=== PATIENT | female | born 1945 | race Caucasian/White ===

== ENCOUNTER 2017-04-24 08:55 | Observation (INO) | payer MEDICARE, MEDICAID ==
[~2017-04-24] VITALS: Ht 167.6 cm; Wt 59.1 kg
[~2017-04-24 08:55] MED LIST: ASPI-611 PO; CALC-1021 PO; CYAN10006 IM; DIPH25CA83 PO; DOCU-28 PO; DOXY-200 PO; LEVO75TA PO; MELA3TAB PO; OMEP20TA5 PO; PENT100C9 PO; POLY17PO10 PO
[2017-04-24] MEDS ORDERED: oxymetazoline 15 ML nasal spray NS ONE (09:15)
[2017-04-24 09:20] LABS: BASOPHILS % (AUTO) 0.4 % (0-1); EOSINOPHILS # (AUTO) 0.4 X10'3 (0-0.9); EOSINOPHILS % (AUTO) 5.8 % (0-6); HEMATOCRIT 29.8 % (35.0-45.0); HEMOGLOBIN 10.1 g/dl (12.0-16.0); LYMPHOCYTES % (AUTO) 29.3 % (21-51); MEAN CORPUSCULAR HGB CONC 33.8 % (33.0-36.5); MEAN CORPUSCULAR VOLUME 88.8 FL (78-98); MEAN PLATELET VOLUME 7.5 FL (7.4-10.4); MONOCYTES # (AUTO) 0.6 X10'3 (0-0.9); MONOCYTES % (AUTO) 9.1 % (2-12); NEUTROPHILS # (AUTO) 3.7 X10'3 (1.8-7.7); NEUTROPHILS % (AUTO) 55.4 % (42-75); PLATELET COUNT 200 X10'3 (140-440); RED BLOOD COUNT 3.36 X10'6 (4.20-5.60); RED CELL DISTRIBUTION WIDTH 14.8 % (11.5-14.5); WHITE BLOOD COUNT 6.7 X10'3 (4.5-11.0)
[2017-04-24] MEDS ORDERED: cocaine 4% topical solution 4ml bottle TP ONE (09:20)
[2017-04-24 09:31] LABS: PARTIAL THROMBOPLASTIN TIME 27 SECONDS (22-32); PROTHROMBIN TIME 10.4 SECONDS (9.0-12.0)
[2017-04-24 09:35] LABS: ALANINE AMINOTRANSFERASE 17 U/L (12-78); ALBUMIN 3.4 G/DL (3.4-5.0); ALBUMIN/GLOBULIN RATIO 0.8 (1.1-1.5); ALKALINE PHOSPHATASE 69 IU/L (46-116); ANION GAP 10 (8-16); ASPARTATE AMINO TRANSFERASE 15 U/L (10-37); BILIRUBIN,TOTAL 0.2 MG/DL (0.1-1.0); BLOOD UREA NITROGEN 10 MG/DL (7-18); BUN/CREATININE RATIO 10.3 (6.6-38.0); CALCIUM 8.8 MG/DL (8.5-10.1); CHLORIDE 103 MMOL/L (99-107); CREATININE 0.97 MG/DL (0.40-0.90); GLUCOSE 142 MG/DL (70-104); POTASSIUM 3.7 MMOL/L (3.5-5.1); SODIUM 137 MMOL/L (135-145); TOTAL CARBON DIOXIDE 24.2 MMOL/L (24-32); TOTAL PROTEIN 7.5 G/DL (6.4-8.2); eGFR 56 ML/MIN
[2017-04-24] MEDS ORDERED: ondansetron/PF 4mg/2ml inj IV ONE (10:15)
[2017-04-24] MEDS ORDERED: normal saline 1000ml 1,000 ML IV ONE (10:30)
[2017-04-24] MEDS ORDERED: magnesium hydroxide 30ml (MOM) UD suspension PO PRN (14:10)
[2017-04-24] MEDS ORDERED: mag hydrox/Alum hydrox/simeth 30ml oral suspension PO PRN (14:10)
[2017-04-24] MEDS ORDERED: acetaminophen 325mg tablet PO PRN ×2 (14:10)
[2017-04-24] MEDS ORDERED: ondansetron/PF 4mg/2ml inj IV PRN (14:10)
[2017-04-24] MEDS ORDERED: CLINDAMYCIN PHOSPHATE IV ONE (14:15)
[2017-04-24] MEDS ORDERED: NORMAL SALINE IV ONE (14:15)
[2017-04-24] MEDS ORDERED: clindamycin phosphate inj 300 MG in dextrose 5%-water 50ml 48 ML IV ONE (14:30)
[2017-04-24] MEDS: normal saline 1000ml 1,000 ML IV SCH (15:04)
[2017-04-24 20:55] LABS: HEMATOCRIT 24.9 % (35.0-45.0); HEMOGLOBIN 8.3 g/dl (12.0-16.0); MEAN CORPUSCULAR HEMOGLOBIN 29.6 PG (27.0-31.0); MEAN CORPUSCULAR HGB CONC 33.4 % (33.0-36.5); MEAN CORPUSCULAR VOLUME 88.8 FL (78-98); MEAN PLATELET VOLUME 7.3 FL (7.4-10.4); PLATELET COUNT 199 X10'3 (140-440); RED CELL DISTRIBUTION WIDTH 15.1 % (11.5-14.5); WHITE BLOOD COUNT 8.2 X10'3 (4.5-11.0)
[2017-04-24] MEDS ORDERED: diphenhydrAMINE 25mg capsule PO SCH (21:00)
[2017-04-24] MEDS: pentosan 100mg capsule PO SCH (21:00)
[2017-04-24] MEDS ORDERED: Melatonin 3mg tablet PO SCH (21:00)
[2017-04-24] MEDS ORDERED: AMIT25TA23 PO (21:13)
[2017-04-24] MEDS ORDERED: amitriptyline 25mg tablet PO ONE (21:30)
[2017-04-24] MEDS ORDERED: diphenhydrAMINE 25mg capsule PO ONE (21:35)
[2017-04-24] MEDS: pantoprazole 40mg Tablet.DR PO SCH (21:41)
[2017-04-24] MEDS: clindamycin phosphate inj 300 MG in dextrose 5%-water 50ml 48 ML IV SCH (21:42)
[2017-04-24] MEDS ORDERED: tranexamic acid inj. 1,000 MG in normal saline 100ml IV soln 90 ML IV ONE (22:35)
[2017-04-24] MEDS ORDERED: docusate sod 100mg capsule PO ONE (22:55)
[2017-04-24] MEDS ORDERED: acetaminophen 325mg tablet PO ONE (22:55)
[2017-04-25] MEDS: clindamycin phosphate inj 300 MG in dextrose 5%-water 50ml 48 ML IV SCH ×2 (04:51→09:33)
[2017-04-25] MEDS: normal saline 1000ml 1,000 ML IV SCH (04:51)
[2017-04-25 06:10] LABS: HEMATOCRIT 24.1 % (35.0-45.0); HEMOGLOBIN 8.2 g/dl (12.0-16.0); MEAN CORPUSCULAR HEMOGLOBIN 30.2 PG (27.0-31.0); MEAN CORPUSCULAR HGB CONC 33.9 % (33.0-36.5); MEAN CORPUSCULAR VOLUME 89.1 FL (78-98); MEAN PLATELET VOLUME 7.6 FL (7.4-10.4); PLATELET COUNT 190 X10'3 (140-440); RED CELL DISTRIBUTION WIDTH 14.7 % (11.5-14.5); WHITE BLOOD COUNT 9.6 X10'3 (4.5-11.0)
[2017-04-25 06:27] LABS: ALBUMIN 3.1 G/DL (3.4-5.0); ANION GAP 9 (8-16); BLOOD UREA NITROGEN 15 MG/DL (7-18); BUN/CREATININE RATIO 15.8 (6.6-38.0); CALCIUM 8.5 MG/DL (8.5-10.1); CHLORIDE 105 MMOL/L (99-107); CREATININE 0.95 MG/DL (0.40-0.90); GLUCOSE 119 MG/DL (70-104); POTASSIUM 4.1 MMOL/L (3.5-5.1); SODIUM 137 MMOL/L (135-145); TOTAL CARBON DIOXIDE 22.8 MMOL/L (24-32); eGFR 58 ML/MIN
[2017-04-25 07:30] VITALS: BP 106/50
[2017-04-25] MEDS ORDERED: oxyCODONE SR 10mg (sust. release) tab PO ONE (07:30)
[2017-04-25] MEDS ORDERED: levoTHYROXINE 75mcg tablet PO SCH (08:00)
[2017-04-25] MEDS: pentosan 100mg capsule PO SCH (08:00)
[2017-04-25] MEDS: pantoprazole 40mg Tablet.DR PO SCH (09:13)
[2017-04-25] MEDS ORDERED: ondansetron/PF 4mg/2ml inj IV ONE (12:05)
[2017-04-25] MEDS ORDERED: ONDA4TAB9 SL (12:08)
[2017-04-25] MEDS ORDERED: CLIN75SO10 PO (12:08)
[2017-04-25] MEDS ORDERED: lactobacillus rhamnosus 10,000 MMU CELLS/CAPSULE PO SCH (20:00)
[2017-04-25] MEDS ORDERED: diphenhydrAMINE 25mg capsule PO ONE (21:00)
[2017-04-25] MEDS ORDERED: amitriptyline 25mg tablet PO SCH (21:00)
[2017-04-25] MEDS ORDERED: diphenhydrAMINE 25mg capsule PO SCH (21:00)
== END 2017-04-25 13:50 | disposition home or self-care (01) ==
LOC: ER 08:55 → ED HOLD 14:07 → CMPBEDREQ 19:47
PROVIDERS: ADMIT Family Medicine; ATTEND Family Medicine
DX: R04.0 Epistaxis (principal); E03.9 Hypothyroidism, unspecified; I25.10 Atherosclerotic heart disease of native coronary artery without angina pectoris; N30.10 Interstitial cystitis (chronic) without hematuria; K29.70 Gastritis, unspecified, without bleeding; D51.0 Vitamin B12 deficiency anemia due to intrinsic factor deficiency; M1A.9XX1 Chronic gout, unspecified, with tophus (tophi); I63.9 Cerebral infarction, unspecified; Z86.73 Personal history of transient ischemic attack (TIA), and cerebral infarction without residual deficits; Z87.891 Personal history of nicotine dependence; Z90.710 Acquired absence of both cervix and uterus
CPT/HCPCS: 36415; 71045; 80048; 80053; 85025; 85027; 85610; 85730; 87070; 93005; 96361; 96365; 96366; 96368; 96375; 96376; 99291; 99292; A6449; G0378; J2405; J3490; J7030; J7060; Q0163; J7040

== ENCOUNTER 2018-04-17 09:45 | Day surgery (SDC) | payer MEDICARE, MEDICAID ==
[2018-04-16 13:07] LABS: BASOPHILS % (AUTO) 0.6 % (0-1); EOSINOPHILS # (AUTO) 0.2 X10'3 (0-0.9); EOSINOPHILS % (AUTO) 3.6 % (0-6); HEMATOCRIT 35.4 % (35.0-45.0); HEMOGLOBIN 11.7 g/dl (12.0-16.0); LYMPHOCYTES # (AUTO) 1.9 X10'3 (1.1-4.8); LYMPHOCYTES % (AUTO) 29.5 % (21-51); MEAN CORPUSCULAR HEMOGLOBIN 30.9 PG (27.0-31.0); MEAN CORPUSCULAR HGB CONC 33.2 g/dL (33.0-36.5); MEAN PLATELET VOLUME 7.8 FL (7.4-10.4); MONOCYTES # (AUTO) 0.7 X10'3 (0-0.9); MONOCYTES % (AUTO) 9.9 % (2-12); NEUTROPHILS # (AUTO) 3.7 X10'3 (1.8-7.7); NEUTROPHILS % (AUTO) 56.4 % (42-75); PLATELET COUNT 186 X10'3 (140-440); RED CELL DISTRIBUTION WIDTH 13.4 % (11.5-14.5); WHITE BLOOD COUNT 6.6 X10'3 (4.5-11.0)
[2018-04-16 13:08] LABS: ALBUMIN 3.6 G/DL (3.4-5.0); ANION GAP 8 (8-16); BLOOD UREA NITROGEN 8 MG/DL (7-18); BUN/CREATININE RATIO 8.1 (6.6-38.0); CALCIUM 9.1 MG/DL (8.5-10.1); CHLORIDE 105 MMOL/L (99-107); CREATININE 0.99 MG/DL (0.40-0.90); GLUCOSE 97 MG/DL (70-104); POTASSIUM 3.8 MMOL/L (3.5-5.1); SODIUM 140 MMOL/L (135-145); TOTAL CARBON DIOXIDE 27.3 MMOL/L (24-32); eGFR 55 ML/MIN
[2018-04-16 13:31] LABS: PARTIAL THROMBOPLASTIN TIME 26 SECONDS (22-32); PROTHROMBIN TIME 10.3 SECONDS (9.0-12.0)
[2018-04-17] VITALS (11 sets, daily range): BP systolic 101–131; BP diastolic 54–77
[~2018-04-17] VITALS: Ht 162.6 cm; Wt 61.6 kg
[~2018-04-17 09:45] MED LIST changes: +AMIT25TA23 PO; -ASPI-611 PO; -CALC-1021 PO; -DIPH25CA83 PO; -DOXY-200 PO
[2018-04-17] MEDS ORDERED: diphenhydrAMINE 25mg capsule PO PRN (10:15)
[2018-04-17] MEDS ORDERED: normal saline 1000ml 1,000 ML IV SCH ×2 (10:15→15:15)
[2018-04-17] MEDS ORDERED: LORazepam 0.5 MG tablet PO PRN (10:15)
[2018-04-17] MEDS ORDERED: ASPI-611 PO (10:48)
[2018-04-17] MEDS ORDERED: ATOR20TA PO (10:48)
[2018-04-17] MEDS ORDERED: DIPH-423 PO (10:48)
[2018-04-17] MEDS ORDERED: CALC1TAB2 (10:48)
[2018-04-17] MEDS ORDERED: ondansetron/PF 4mg/2ml inj IV PRN (11:50)
[2018-04-17] MEDS ORDERED: verapamil 2.5 mg/ml inj IV ONE (13:40)
[2018-04-17] MEDS ORDERED: nitroGLYCERIN-Tridil 50MG/D5W 250 ML IV ONE (13:40)
[2018-04-17] MEDS ORDERED: fentaNYL/PF 50MCG/1 ML 2ML syringe ONE (13:42)
[2018-04-17] MEDS ORDERED: midazolam 2 mg/2 ml injection ONE (13:42)
[2018-04-17] MEDS ORDERED: LIDOcaine 1% (10mg/ml)w/preservative injection 20ml MDV ONE (13:42)
[2018-04-17] MEDS ORDERED: iohexol 350 MG/ML 50ML vial IV ONE (13:43)
[2018-04-17] MEDS ORDERED: iohexol 350MG/ML 100ml bottle IV ONE (13:43)
[2018-04-17] MEDS ORDERED: heparin 1,000unit/ml 10ml vial 10 ML ONE (13:43)
== END 2018-04-17 20:00 | disposition home or self-care (01) ==
LOC: SSTAY O 09:45
PROVIDERS: ATTEND Internal Medicine Cardiovascular Disease
DX: I10 Essential (primary) hypertension (principal); I25.10 Atherosclerotic heart disease of native coronary artery without angina pectoris; Z88.1 Allergy status to other antibiotic agents; Z88.5 Allergy status to narcotic agent; Z88.0 Allergy status to penicillin; Z88.8 Allergy status to other drugs, medicaments and biological substances
CPT/HCPCS: 36415; 80048; 85025; 85610; 85730; 93005; 93458; 99152; 99153; A6257; J1644; J2001; J2250; J2405; J3010; J7030; Q0163; Q9967; A4620; C1769; J3490

== ENCOUNTER 2018-09-02 20:00 | Emergency (ER) | payer MEDICARE, MEDICAID ==
[~2018-09-02] VITALS: Ht 162.6 cm; Wt 61.4 kg
[~2018-09-02 20:00] MED LIST changes: +ASPI-611 PO; +ATOR20TA PO; +CALC1TAB2; +DIPH-423 PO; -MELA3TAB PO; +MELA3TAB64 PO
[2018-09-02 20:08] VITALS: BP 116/69
--- NOTE | 2018-09-02 20:46 | NUR ---
PT FAMILY FRIEND AT BEDSIDE,PT GETTING HER X RAY.DENIES ANY CONCERN.PROCEDURE MATERIAL AT BEDSIDE.
--- NOTE | 2018-09-02 21:08 | NUR ---
NURSE TY RN AT BEDSIDE ASSISSTING DR ROJAS WITH SUTURING.
[2018-09-02] MEDS ORDERED: TETanus/Pertussis (Acell)/Diphther VAC/PF (Tdap-Adult) 0.5ml syringe IM ONE (21:40)
[2018-09-02] MEDS ORDERED: bacitracin 15gm ointment TP ONE (21:40)
== END 2018-09-02 23:04 | disposition home or self-care (01) ==
LOC: ER 20:01
DX: S61.411A Laceration without foreign body of right hand, initial encounter (principal); I25.10 Atherosclerotic heart disease of native coronary artery without angina pectoris; G89.29 Other chronic pain; Z88.1 Allergy status to other antibiotic agents; Z86.73 Personal history of transient ischemic attack (TIA), and cerebral infarction without residual deficits; Z88.0 Allergy status to penicillin; Z88.2 Allergy status to sulfonamides; Z88.8 Allergy status to other drugs, medicaments and biological substances; Z79.82 Long term (current) use of aspirin; Z79.899 Other long term (current) drug therapy; W25.XXXA Contact with sharp glass, initial encounter; Y93.89 Activity, other specified; Y92.89 Other specified places as the place of occurrence of the external cause; Y99.8 Other external cause status
CPT/HCPCS: 12042; 73120; 90471; 99284

== ENCOUNTER 2021-04-26 10:39 | Emergency (ER) | payer MEDICARE, MEDICAID ==
[~2021-04-26] VITALS: Ht 162.6 cm; Wt 46.0 kg
[~2021-04-26 10:39] MED LIST changes: +MELA3TAB39 PO; -MELA3TAB64 PO
[2021-04-26 11:19] LABS: BASOPHILS % (AUTO) 0.4 % (0-1); EOSINOPHILS # (AUTO) 0.9 X10'3 (0-0.9); EOSINOPHILS % (AUTO) 9.5 % (0-6); HEMOGLOBIN 10.7 g/dl (12.0-16.0); LYMPHOCYTES # (AUTO) 1.5 X10'3 (1.1-4.8); LYMPHOCYTES % (AUTO) 15.4 % (21-51); MEAN CORPUSCULAR HEMOGLOBIN 30.6 PG (27.0-31.0); MEAN CORPUSCULAR HGB CONC 32.4 g/dL (33.0-36.5); MEAN CORPUSCULAR VOLUME 94.4 FL (78-98); MEAN PLATELET VOLUME 7.8 FL (7.4-10.4); MONOCYTES # (AUTO) 1.1 X10'3 (0-0.9); MONOCYTES % (AUTO) 11.1 % (2-12); NEUTROPHILS # (AUTO) 6.2 X10'3 (1.8-7.7); NEUTROPHILS % (AUTO) 63.6 % (42-75); PLATELET COUNT 206 X10'3 (140-440); RED CELL DISTRIBUTION WIDTH 15.1 % (11.5-14.5); WHITE BLOOD COUNT 9.8 X10'3 (4.5-11.0)
[2021-04-26 11:30] LABS: ALANINE AMINOTRANSFERASE 18 U/L (12-78); ALBUMIN 3.4 G/DL (3.4-5.0); ALBUMIN/GLOBULIN RATIO 0.8 (1.1-1.5); ALKALINE PHOSPHATASE 72 IU/L (46-116); ANION GAP 11 (8-16); ASPARTATE AMINO TRANSFERASE 31 U/L (10-37); BILIRUBIN,TOTAL 0.7 MG/DL (0.1-1.0); BLOOD UREA NITROGEN 13 MG/DL (7-18); CALCIUM 9.1 MG/DL (8.5-10.1); CHLORIDE 102 MMOL/L (99-107); CREATININE 1.18 MG/DL (0.40-0.90); GLUCOSE 156 MG/DL (70-104); POTASSIUM 3.6 MMOL/L (3.5-5.1); SODIUM 139 MMOL/L (135-145); TOTAL CARBON DIOXIDE 25.6 MMOL/L (24-32); TOTAL PROTEIN 7.7 G/DL (6.4-8.2); eGFR 44 ML/MIN
[2021-04-26 11:38] LABS: MAGNESIUM 2.2 MG/DL (1.5-2.4)
[2021-04-26 12:12] LABS: CLARITY,URINE SLIGHTLY CLOUDY (Clear); COLOR,URINE ORANGE (Yellow)
[2021-04-26 12:23] LABS: UA COLLECTION TYPE STRAIGHT CATH
[2021-04-26 12:27] LABS: BACTERIA,URINE 3+ /HPF (Neg); RBC,URINE 0-2 /HPF (0-2); SQUAMOUS EPITHELIAL CELL,UR NONE SEEN /LPF (FEW); TRANSITIONAL EPI CELLS,URINE FEW /HPF; WBC,URINE 20-30 /HPF (0-4)
[2021-04-26 12:28] LABS: WBC CLUMPS,URINE MODERATE /HPF (NEGATIVE)
[2021-04-26] MEDS ORDERED: NITR100C6 PO (14:42)
[2021-04-26] MEDS ORDERED: nitrofuran monohydrate/nitrofuran macrocrysal 100 MG (MacroBID) capsule PO ONE (14:45)
[2021-04-26 15:37] VITALS: BP 124/68
== END 2021-04-26 15:39 | disposition home or self-care (01) ==
LOC: ER 10:39
DX: N39.0 Urinary tract infection, site not specified (principal); R42 Dizziness and giddiness; R53.1 Weakness; I25.10 Atherosclerotic heart disease of native coronary artery without angina pectoris; E03.9 Hypothyroidism, unspecified; G89.29 Other chronic pain; Z86.73 Personal history of transient ischemic attack (TIA), and cerebral infarction without residual deficits; Z87.440 Personal history of urinary (tract) infections; Z98.890 Other specified postprocedural states; Z88.1 Allergy status to other antibiotic agents; Z88.0 Allergy status to penicillin; Z88.2 Allergy status to sulfonamides; Z88.8 Allergy status to other drugs, medicaments and biological substances; Z88.5 Allergy status to narcotic agent; Z79.82 Long term (current) use of aspirin; Z79.899 Other long term (current) drug therapy
CPT/HCPCS: 36415; 71045; 74176; 80053; 81001; 83605; 83735; 84145; 85025; 87040; 87077; 87088; 87186; 93005; 99285

== ENCOUNTER 2021-04-29 11:17 | Emergency (ER) | payer MEDICARE, MEDICAID ==
[~2021-04-29] VITALS: Ht 162.6 cm; Wt 46.0 kg
[~2021-04-29 11:17] MED LIST changes: +NITR100C6 PO
[2021-04-29] MEDS ORDERED: ondansetron 4mg rapidly disintigrating tab PO ONE (12:15)
[2021-04-29] MEDS ORDERED: ciprofloxacin 250mg tablet PO ONE (12:15)
--- NOTE | 2021-04-29 12:50 | NUR ---
Discussed pt's allergy to cipro with MD and pt. Pt cannot recall what kind of reaction she has to Cipro. MD orders to proceed with cautious monitoring.
[2021-04-29] MEDS ORDERED: CIPR-202 PO (13:24)
[2021-04-29 14:14] VITALS: BP 109/60
== END 2021-04-29 14:16 | disposition home or self-care (01) ==
LOC: ER 11:18
DX: N39.0 Urinary tract infection, site not specified (principal); I25.10 Atherosclerotic heart disease of native coronary artery without angina pectoris; E03.9 Hypothyroidism, unspecified; G89.29 Other chronic pain; Z87.440 Personal history of urinary (tract) infections; Z86.73 Personal history of transient ischemic attack (TIA), and cerebral infarction without residual deficits; Z88.1 Allergy status to other antibiotic agents; Z88.0 Allergy status to penicillin; Z88.2 Allergy status to sulfonamides; Z88.8 Allergy status to other drugs, medicaments and biological substances; Z79.82 Long term (current) use of aspirin; Z79.2 Long term (current) use of antibiotics; Z79.899 Other long term (current) drug therapy
CPT/HCPCS: 99283

== ENCOUNTER 2022-08-21 14:33 | Emergency (ER) | payer MEDICARE, MEDICAID ==
[~2022-08-21] VITALS: Ht 160 cm; Wt 42.3 kg
[~2022-08-21 14:33] MED LIST changes: +OMEP20TA43 PO; -OMEP20TA5 PO
[2022-08-21 16:33] LABS: COLOR,URINE ORANGE (Yellow); UA COLLECTION TYPE CLN CATCH MIDSTREAM
[2022-08-21 16:34] LABS: CLARITY,URINE CLOUDY (Clear)
[2022-08-21 16:51] VITALS: BP 101/64
[2022-08-21 17:01] LABS: BASOPHILS # (AUTO) 0.1 X10'3 (0-0.2); BASOPHILS % (AUTO) 0.7 % (0-1); EOSINOPHILS # (AUTO) 0.3 X10'3 (0-0.9); EOSINOPHILS % (AUTO) 2.7 % (0-6); HEMOGLOBIN 8.3 g/dl (12.0-16.0); LYMPHOCYTES # (AUTO) 2.3 X10'3 (1.1-4.8); LYMPHOCYTES % (AUTO) 19.1 % (21-51); MEAN CORPUSCULAR HEMOGLOBIN 31.8 PG (27.0-31.0); MEAN CORPUSCULAR VOLUME 99.4 FL (78-98); MONOCYTES # (AUTO) 1.4 X10'3 (0-0.9); MONOCYTES % (AUTO) 11.5 % (2-12); NEUTROPHILS # (AUTO) 7.8 X10'3 (1.8-7.7); PLATELET COUNT 231 X10'3 (140-440); RED BLOOD COUNT 2.62 X10'6 (4.20-5.60); RED CELL DISTRIBUTION WIDTH 15.9 % (11.5-14.5); WHITE BLOOD COUNT 11.8 X10'3 (4.5-11.0)
[2022-08-21 17:08] LABS: ALANINE AMINOTRANSFERASE 23 U/L (12-78); ALBUMIN 3.7 G/DL (3.4-5.0); ALBUMIN/GLOBULIN RATIO 0.9 (1.1-1.5); ALKALINE PHOSPHATASE 87 IU/L (46-116); ANION GAP 10 (8-16); ASPARTATE AMINO TRANSFERASE 31 U/L (10-37); BILIRUBIN,TOTAL 0.8 MG/DL (0.1-1.0); BLOOD UREA NITROGEN 19 MG/DL (7-18); BUN/CREATININE RATIO 15.8 (10.0-20.0); CALCIUM 10.4 MG/DL (8.5-10.1); CHLORIDE 103 MMOL/L (99-107); GLUCOSE 99 MG/DL (70-104); POTASSIUM 3.5 MMOL/L (3.5-5.1); SODIUM 140 MMOL/L (135-145); TOTAL CARBON DIOXIDE 26.6 MMOL/L (24-32); TOTAL PROTEIN 7.6 G/DL (6.4-8.2); eGFR 43 ML/MIN
[2022-08-21 17:09] LABS: SQUAMOUS EPITHELIAL CELL,UR MODERATE /LPF (FEW)
[2022-08-21 17:11] LABS: BACTERIA,URINE 3+ /HPF (Neg); HYALINE CASTS 0-3 /LPF (NEGATIVE); MUCUS STRANDS FEW /LPF (Neg)
[2022-08-21 17:12] LABS: RBC,URINE 0-2 /HPF (0-2); TRANSITIONAL EPI CELLS,URINE FEW /HPF
[2022-08-21 17:48] LABS: ANISOCYTOSIS 2+; PLATELET ESTIMATE NORMAL; POIKILOCYTOSIS 1+
== END 2022-08-21 18:24 | disposition home or self-care (01) ==
LOC: ER 14:34
DX: D51.0 Vitamin B12 deficiency anemia due to intrinsic factor deficiency (principal); J44.9 Chronic obstructive pulmonary disease, unspecified; R53.1 Weakness; R30.0 Dysuria; E03.9 Hypothyroidism, unspecified; Z88.1 Allergy status to other antibiotic agents; Z88.0 Allergy status to penicillin; Z88.2 Allergy status to sulfonamides
CPT/HCPCS: 36415; 71045; 76604; 80053; 81001; 83880; 84484; 85008; 85025; 86885; 86900; 86901; 87077; 87088; 87186; 93005; 93308; 99285; A4615

== ENCOUNTER 2022-08-29 16:07 | Emergency (ER) | payer MEDICARE, MEDICAID ==
[~2022-08-29] VITALS: Ht 160 cm; Wt 42.7 kg
[2022-08-29 17:13] VITALS: BP 124/66
[2022-08-29 17:58] LABS: HEMATOCRIT 24.3 % (35.0-45.0); HEMOGLOBIN 7.7 g/dl (12.0-16.0); MEAN CORPUSCULAR HGB CONC 31.9 g/dL (33.0-36.5); MEAN CORPUSCULAR VOLUME 103.4 FL (78-98); MEAN PLATELET VOLUME 7.2 FL (7.4-10.4); PLATELET COUNT 211 X10'3 (140-440); RED BLOOD COUNT 2.35 X10'6 (4.20-5.60); WHITE BLOOD COUNT 11.4 X10'3 (4.5-11.0)
[2022-08-29 18:07] LABS: COLOR,URINE ORANGE (Yellow); UA COLLECTION TYPE CLN CATCH MIDSTREAM
[2022-08-29 18:08] LABS: CLARITY,URINE SLIGHTLY CLOUDY (Clear)
[2022-08-29 18:10] LABS: HYALINE CASTS 0-3 /LPF (NEGATIVE); MUCUS STRANDS FEW /LPF (Neg); RBC,URINE 0-2 /HPF (0-2); SQUAMOUS EPITHELIAL CELL,UR MODERATE /LPF (FEW); TRANSITIONAL EPI CELLS,URINE FEW /HPF
[2022-08-29 18:11] LABS: BACTERIA,URINE FEW /HPF (Neg); WBC CLUMPS,URINE FEW /HPF (NEGATIVE)
== END 2022-08-29 19:28 | disposition left against medical advice (07) ==
LOC: ER 16:08
DX: R79.9 Abnormal finding of blood chemistry, unspecified (principal); Z53.21 Procedure and treatment not carried out due to patient leaving prior to being seen by health care provider
CPT/HCPCS: 36415; 81001; 85027; 87088; 99281

== ENCOUNTER 2022-11-16 15:59 | Inpatient (IN) | payer MEDICARE, MEDICAID ==
[~2022-11-16] VITALS: Ht 152.4 cm; Wt 37.0 kg
[2022-11-16 17:52] LABS: BASOPHILS # (AUTO) 0.1 X10'3 (0-0.2); BASOPHILS % (AUTO) 1.3 % (0-1); EOSINOPHILS # (AUTO) 0.1 X10'3 (0-0.9); EOSINOPHILS % (AUTO) 0.7 % (0-6); HEMATOCRIT 44.7 % (35.0-45.0); HEMOGLOBIN 14.2 g/dl (12.0-16.0); LYMPHOCYTES # (AUTO) 1.7 X10'3 (1.1-4.8); LYMPHOCYTES % (AUTO) 19.4 % (21-51); MEAN CORPUSCULAR HEMOGLOBIN 30.3 PG (27.0-31.0); MEAN CORPUSCULAR HGB CONC 31.7 g/dL (33.0-36.5); MEAN CORPUSCULAR VOLUME 95.6 FL (78-98); MEAN PLATELET VOLUME 8.8 FL (7.4-10.4); MONOCYTES # (AUTO) 0.7 X10'3 (0-0.9); MONOCYTES % (AUTO) 7.6 % (2-12); NEUTROPHILS # (AUTO) 6.1 X10'3 (1.8-7.7); PLATELET COUNT 135 X10'3 (140-440); RED BLOOD COUNT 4.68 X10'6 (4.20-5.60); RED CELL DISTRIBUTION WIDTH 14.3 % (11.5-14.5); WHITE BLOOD COUNT 8.7 X10'3 (4.5-11.0)
[2022-11-16 17:53] LABS: BILIRUBIN,URINE NEGATIVE (Neg); COLOR,URINE YELLOW (Yellow); GLUCOSE, URINE NEGATIVE (Neg); KETONES,URINE NEGATIVE (Neg); LEUKOCYTE ESTERASE ,URINE MODERATE (Neg); NITRITES, URINE NEGATIVE (Neg); OCCULT BLOOD,URINE TRACE-INTACT (Neg); PH,URINE 6.5 (4.8-8.0); PROTEIN,URINE NEGATIVE (Neg); UROBILINOGEN,URINE 0.2 E.U/dL (0.2-1.0)
[2022-11-16 17:58] LABS: UA COLLECTION TYPE VOIDED
[2022-11-16 17:59] LABS: CLARITY,URINE SLIGHTLY CLOUDY (Clear)
[2022-11-16 18:16] LABS: ALANINE AMINOTRANSFERASE 19 U/L (12-78); ALBUMIN 3.5 G/DL (3.4-5.0); ALBUMIN/GLOBULIN RATIO 0.9 (1.1-1.5); ALKALINE PHOSPHATASE 111 IU/L (46-116); ANION GAP 7 (8-16); ASPARTATE AMINO TRANSFERASE 29 U/L (10-37); BILIRUBIN,TOTAL 0.3 MG/DL (0.1-1.0); BLOOD UREA NITROGEN 15 MG/DL (7-18); BUN/CREATININE RATIO 11.8 (10.0-20.0); CALCIUM 9.8 MG/DL (8.5-10.1); CHLORIDE 105 MMOL/L (99-107); CREATININE 1.27 MG/DL (0.40-0.90); GLUCOSE 107 MG/DL (70-104); MAGNESIUM 2.7 MG/DL (1.5-2.4); SODIUM 138 MMOL/L (135-145); TOTAL CARBON DIOXIDE 26.4 MMOL/L (24-32); TOTAL PROTEIN 7.6 G/DL (6.4-8.2); eCRCL 21 ML/MIN; eGFR 41 ML/MIN
[2022-11-16 18:21] LABS: LIPASE 110 U/L (16-77)
[2022-11-16 18:24] LABS: POTASSIUM 2.9 MMOL/L (3.5-5.1)
[2022-11-16 18:41] LABS: SQUAMOUS EPITHELIAL CELL,UR MANY /LPF (FEW)
[2022-11-16 18:42] LABS: MUCUS STRANDS FEW /LPF (Neg)
[2022-11-16 18:43] LABS: BACTERIA,URINE 4+ /HPF (Neg); WBC,URINE 30-50 /HPF (0-4)
[2022-11-16] MEDS: POTASSIUM BICARB 20meq eff tab 20 MEQ TABLET.EFF PO SCH (21:33)
[2022-11-16] MEDS ORDERED: OMEP20CA16 PO (23:45)
[2022-11-17] MEDS ORDERED: magnesium 2GM in 50ml NS 50 ML IV PRN (00:25)
[2022-11-17] MEDS ORDERED: potassium Cl 20 mEq SR tablet PO PRN ×2 (00:25)
[2022-11-17] MEDS ORDERED: mag hydrox/Alum hydrox/simeth 30ml oral suspension PO PRN (00:25)
[2022-11-17] MEDS ORDERED: magnesium Cl slow-release 64mg tablet PO PRN (00:25)
[2022-11-17] MEDS ORDERED: magnesium hydroxide 30ml (MOM) UD suspension PO PRN (00:25)
[2022-11-17] MEDS ORDERED: ondansetron/PF 4mg/2ml inj IV PRN (00:25)
[2022-11-17] MEDS ORDERED: magnesium 4gm in 100ml NS 100 ML IV PRN (00:25)
[2022-11-17] MEDS ORDERED: potassium Cl 40MEQ/1/2NS 520ml 520 ML IV PRN (00:25)
[2022-11-17] MEDS: acetaminophen 325mg tablet PO PRN ×2 (01:27→21:32)
[2022-11-17] MEDS: LIDOcaine 5% patch TP SCH ×2 (01:28→09:17)
--- NOTE | 2022-11-17 01:28 | NUR ---
Patient placed on hospital bed. Provided with warm blankets and ice water. Pt denied any other needs at this time.
[2022-11-17] MEDS: potassium Cl 20mEq in D5-NS 1,000 ML IV SCH ×3 (01:30→14:06)
--- NOTE | 2022-11-17 02:41 | NUR ---
Patient resting in bed quietly with eyes closed. Respirations are even and unlabored. Pt in no acute distress.
[2022-11-17 04:48] LABS: MAGNESIUM 2.4 MG/DL (1.5-2.4); POTASSIUM 3.4 MMOL/L (3.5-5.1); THYROID STIMULATING HORMONE 3.46 ulU/ml (0.34-4.50)
[2022-11-17] MEDS: PENTOSAN 100 MG PO SCH ×3 (07:00→21:35)
[2022-11-17] MEDS: K and/or MAG REPLACEMENT MC SCH ×2 (07:35→20:00)
[2022-11-17] MEDS: docusate sod 100mg capsule PO SCH ×2 (08:00→20:00)
[2022-11-17] MEDS ORDERED: LIDOcaine 5% patch TP SCH (08:00)
--- NOTE | 2022-11-17 09:00 | NUR ---
Patient in room [facility] 4024. I have received report from LUPIS Jordan and had the opportunity to ask questions and assume patient care.
[2022-11-17] MEDS: pantoprazole 40mg Tablet.DR PO SCH (09:16)
[2022-11-17] MEDS: levoTHYROXINE 75mcg tablet PO SCH (09:16)
[2022-11-17] MEDS: heparin, porcine 5000 units/ml vial SQ SCH ×2 (09:27→21:35)
--- NOTE | 2022-11-17 09:55 | NUR ---
pt has K 3.4- will follow replacement protocol and continue to monitor patient
[2022-11-17 10:00] VITALS: BP 92/61; PULSE 71; RESP 14; TEMP 98.6; O2SAT 100
[2022-11-17 18:00] VITALS: BP 106/63; PULSE 71; RESP 18; TEMP 97.3; O2SAT 96
--- NOTE | 2022-11-17 18:30 | NUR ---
Problems reprioritized. Patient report given, questions answered & plan of care reviewed with LUPIS Bartholomew.
[2022-11-17] MEDS: lactose-reduced food (Ensure High Protein) 237ml bottle PO SCH (18:42)
--- NOTE | 2022-11-17 18:42 | NUR ---
Patient in room [facility] 4024. I have received report from LUPIS Mace and had the opportunity to ask questions and assume patient care.
[2022-11-17 20:00] VITALS: RESP 18; O2SAT 96
[2022-11-17] MEDS ORDERED: Melatonin 3mg tablet PO SCH (21:00)
[2022-11-17] MEDS ORDERED: atorvastatin 20mg tablet PO SCH (21:00)
[2022-11-17] MEDS: POTASSIUM BICARB 20meq eff tab 20 MEQ TABLET.EFF PO SCH (21:20)
[2022-11-17 22:00] VITALS: BP 81/43; PULSE 63; RESP 16; TEMP 97.7; O2SAT 99
[2022-11-17] MEDS ORDERED: normal saline 250ml IV soln 250 ML IV ONE (23:00)
[2022-11-17] MEDS ORDERED: LIDOcaine 5% patch TP ONE (23:10)
[2022-11-17 23:36] VITALS: BP 108/47; PULSE 65; TEMP 97.7
[2022-11-18] LABS: ALANINE AMINOTRANSFERASE 16 U/L (12-78); ALBUMIN 2.6 G/DL (3.4-5.0); ALBUMIN/GLOBULIN RATIO 0.8 (1.1-1.5); ALKALINE PHOSPHATASE 86 IU/L (46-116); ANION GAP 7 (8-16); ASPARTATE AMINO TRANSFERASE 26 U/L (10-37); BILIRUBIN,TOTAL 0.2 MG/DL (0.1-1.0); BLOOD UREA NITROGEN 11 MG/DL (7-18); BUN/CREATININE RATIO 11.8 (10.0-20.0); CALCIUM 8.4 MG/DL (8.5-10.1); CHLORIDE 111 MMOL/L (99-107); CREATININE 0.93 MG/DL (0.40-0.90); GLUCOSE 93 MG/DL (70-104); SODIUM 141 MMOL/L (135-145); TOTAL CARBON DIOXIDE 23.5 MMOL/L (24-32); eCRCL 29 ML/MIN; eGFR 58 ML/MIN
[2022-11-18 00:01] LABS: BASOPHILS # (AUTO) 0.1 X10'3 (0-0.2); BASOPHILS % (AUTO) 0.7 % (0-1); EOSINOPHILS # (AUTO) 0.2 X10'3 (0-0.9); EOSINOPHILS % (AUTO) 2.4 % (0-6); HEMATOCRIT 40.2 % (35.0-45.0); HEMOGLOBIN 12.9 g/dl (12.0-16.0); LYMPHOCYTES # (AUTO) 1.5 X10'3 (1.1-4.8); LYMPHOCYTES % (AUTO) 21.5 % (21-51); MEAN CORPUSCULAR HEMOGLOBIN 30.6 PG (27.0-31.0); MEAN CORPUSCULAR HGB CONC 32.1 g/dL (33.0-36.5); MEAN CORPUSCULAR VOLUME 95.6 FL (78-98); MEAN PLATELET VOLUME 8.4 FL (7.4-10.4); MONOCYTES # (AUTO) 0.6 X10'3 (0-0.9); MONOCYTES % (AUTO) 8.5 % (2-12); NEUTROPHILS # (AUTO) 4.7 X10'3 (1.8-7.7); NEUTROPHILS % (AUTO) 66.9 % (42-75); PLATELET COUNT 100 X10'3 (140-440); RED BLOOD COUNT 4.21 X10'6 (4.20-5.60); RED CELL DISTRIBUTION WIDTH 14.2 % (11.5-14.5)
[2022-11-18] MEDS: potassium Cl 20mEq in D5-NS 1,000 ML IV SCH ×2 (01:47→16:30)
--- NOTE | 2022-11-18 06:24 | NUR ---
Problems reprioritized. Patient report given, questions answered & plan of care reviewed with LUPIS Malin.
[2022-11-18 06:53] LABS: BILIRUBIN,URINE NEGATIVE (Neg); CLARITY,URINE CLOUDY (Clear); COLOR,URINE YELLOW (Yellow); GLUCOSE, URINE NEGATIVE (Neg); KETONES,URINE NEGATIVE (Neg); LEUKOCYTE ESTERASE ,URINE SMALL (Neg); NITRITES, URINE NEGATIVE (Neg); OCCULT BLOOD,URINE NEGATIVE (Neg); PROTEIN,URINE TRACE mg/dl (Neg); UROBILINOGEN,URINE 0.2 E.U/dL (0.2-1.0)
[2022-11-18 07:12] LABS: UA COLLECTION TYPE OTHER
[2022-11-18 07:13] LABS: HYALINE CASTS 0-3 /LPF (NEGATIVE)
[2022-11-18 07:14] LABS: BACTERIA,URINE FEW /HPF (Neg); RBC,URINE 0-2 /HPF (0-2); WBC CLUMPS,URINE FEW /HPF (NEGATIVE)
[2022-11-18 07:15] LABS: MUCUS STRANDS NONE SEEN /LPF (Neg); SQUAMOUS EPITHELIAL CELL,UR MANY /LPF (FEW); TRANSITIONAL EPI CELLS,URINE MODERATE /HPF
[2022-11-18 07:44] LABS: BASOPHILS # (AUTO) 0.1 X10'3 (0-0.2); BASOPHILS % (AUTO) 1.2 % (0-1); EOSINOPHILS # (AUTO) 0.3 X10'3 (0-0.9); EOSINOPHILS % (AUTO) 4.2 % (0-6); HEMATOCRIT 38.8 % (35.0-45.0); HEMOGLOBIN 12.2 g/dl (12.0-16.0); LYMPHOCYTES # (AUTO) 1.3 X10'3 (1.1-4.8); LYMPHOCYTES % (AUTO) 19.4 % (21-51); MEAN CORPUSCULAR HEMOGLOBIN 30.4 PG (27.0-31.0); MEAN CORPUSCULAR HGB CONC 31.5 g/dL (33.0-36.5); MEAN CORPUSCULAR VOLUME 96.5 FL (78-98); MEAN PLATELET VOLUME 9.1 FL (7.4-10.4); MONOCYTES # (AUTO) 0.5 X10'3 (0-0.9); MONOCYTES % (AUTO) 7.9 % (2-12); NEUTROPHILS # (AUTO) 4.5 X10'3 (1.8-7.7); NEUTROPHILS % (AUTO) 67.3 % (42-75); PLATELET COUNT 109 X10'3 (140-440); RED BLOOD COUNT 4.02 X10'6 (4.20-5.60); RED CELL DISTRIBUTION WIDTH 14.2 % (11.5-14.5); WHITE BLOOD COUNT 6.7 X10'3 (4.5-11.0)
[2022-11-18] MEDS: lactose-reduced food (Ensure High Protein) 237ml bottle PO SCH ×2 (08:00→13:00)
[2022-11-18] MEDS: K and/or MAG REPLACEMENT MC SCH (08:00)
[2022-11-18 08:07] LABS: ALANINE AMINOTRANSFERASE 14 U/L (12-78); ALBUMIN 2.4 G/DL (3.4-5.0); ALBUMIN/GLOBULIN RATIO 0.7 (1.1-1.5); ALKALINE PHOSPHATASE 79 IU/L (46-116); ANION GAP 6 (8-16); ASPARTATE AMINO TRANSFERASE 25 U/L (10-37); BILIRUBIN,TOTAL 0.2 MG/DL (0.1-1.0); BLOOD UREA NITROGEN 9 MG/DL (7-18); BUN/CREATININE RATIO 11.4 (10.0-20.0); CALCIUM 8.3 MG/DL (8.5-10.1); CHLORIDE 114 MMOL/L (99-107); CREATININE 0.79 MG/DL (0.40-0.90); GLUCOSE 93 MG/DL (70-104); POTASSIUM 3.8 MMOL/L (3.5-5.1); SODIUM 141 MMOL/L (135-145); TOTAL CARBON DIOXIDE 20.6 MMOL/L (24-32); TOTAL PROTEIN 5.8 G/DL (6.4-8.2); eCRCL 34 ML/MIN; eGFR 70 ML/MIN
[2022-11-18 08:13] LABS: % IRON SATURATION 38 % (11-46); IRON 49 UG/DL (49-151); TOTAL IRON BINDING CAPACITY 128 UG/DL (259-388)
[2022-11-18] MEDS: levoTHYROXINE 75mcg tablet PO SCH (10:26)
[2022-11-18] MEDS: PENTOSAN 100 MG PO SCH ×2 (10:26→14:00)
[2022-11-18] MEDS: pantoprazole 40mg Tablet.DR PO SCH (10:28)
[2022-11-18] MEDS: LIDOcaine 5% patch TP SCH (10:36)
[2022-11-18] MEDS: acetaminophen 325mg tablet PO PRN (10:41)
[2022-11-18] MEDS: docusate sod 100mg capsule PO SCH (10:45)
[2022-11-18] MEDS: heparin, porcine 5000 units/ml vial SQ SCH (10:45)
[2022-11-18 10:53] LABS: BILIRUBIN,URINE NEGATIVE (Neg); CLARITY,URINE CLOUDY (Clear); COLOR,URINE YELLOW (Yellow); GLUCOSE, URINE NEGATIVE (Neg); KETONES,URINE NEGATIVE (Neg); LEUKOCYTE ESTERASE ,URINE TRACE (Neg); NITRITES, URINE NEGATIVE (Neg); OCCULT BLOOD,URINE NEGATIVE (Neg); PROTEIN,URINE TRACE mg/dl (Neg); UROBILINOGEN,URINE 0.2 E.U/dL (0.2-1.0)
[2022-11-18 11:09] LABS: UA COLLECTION TYPE CLN CATCH MIDSTREAM
[2022-11-18 11:21] LABS: MUCUS STRANDS FEW /LPF (Neg)
[2022-11-18 11:22] LABS: SQUAMOUS EPITHELIAL CELL,UR MODERATE /LPF (FEW)
[2022-11-18 11:23] LABS: BACTERIA,URINE FEW /HPF (Neg); HYALINE CASTS 0-3 /LPF (NEGATIVE); RBC,URINE 0-2 /HPF (0-2); TRANSITIONAL EPI CELLS,URINE MODERATE /HPF
--- NOTE | 2022-11-18 13:23 | NUR ---
Paged PT. to work with pt.
--- NOTE | 2022-11-18 14:57 | NUR ---
Malnutrition/Luke Consults: Pt admit DX UTI, CAD, chronic pain, and multiple L rib fractures s/p falls Luke 11 w/ skin intact per EMR. Pt reports >34 pounds wt loss w/ decreased appetite past year per RN Malnutrition Screen. Pt/SO seen by RD at bedside; pt reports UBW 130 pounds one year ago w/ decreasing appetite has tried Boost but only drinks half or 1 at most. Pt visible cachectic during RD visit; current scaled wt 37kg though current height 60" not accurate actually 64" per pt making true BMI 14.0. Per pt, takes routine MVI/Ca/D daily w/ PCP has encouraging Boost ONS TID for weight gain and will try after discharge. RD verbally educated pt/SO on nutrition repletion strategies providing Ensure coupons and RD contact information. RD encouraged pt/SO to f/u w/ PCP regarding appetite stimulant if poor intake persists and contact dietitian's office if further nutrition questions/concerns. Given ~38% UBW loss past year and visible severe wasting pt meets severe malnutrition criteria; MD notified. Noted pt on heart healthy diet would benefit from liberalizing to regular diet though pt to discharge this afternoon per RN. Receiving KCL/D5W/NS at 100ml/hr providing 408 kcals/day. RD d/w RN regular diet if pt doesn't discharge. Pt does request strawberry milkshake after lunch today-dietary notified. Noted Ensure High Protein TIDWM ordered by MD first MG steinberg dietary notified- change to Ensure Enlive if not discharged. LBM 11/17 receiving routine colace. Limited nutrition interventions in view of discharge. Will continue to follow. Rec if pt not to discharge: 1. Liberalize to regular diet; milkshakes BIDLD; encourage PO 2. Change Ensure High Protein TID to Ensure Enlive TIDWM 3. routine MVM supplementation 4. routine bowel care 5. weekly wt Addendum: 11/18/22 at [address] Amended: Links added.
--- NOTE | 2022-11-18 15:44 | NUR ---
MD aware of pending UA culture, low k on admit and previous elevated lipase. Discharge orders still in will DC pt.
[2022-11-18] MEDS ORDERED: NITR100C PO (16:05)
--- NOTE | 2022-11-18 16:59 | NUR ---
DISCHARGE NOTE: Reviewed discharge paperwork with pt. and . pt. seems distracted easily. Changes her story on what she is taking at home medication witt, advised to follow closely and to keep an updated list of home medications on them at all times. Discussed new antibiotic order and schedule. Discussed possible ASE and use of OTC probiotic and pain patches (lidocaine). Pt. and family educated on diet high in potassium and recommended to f/u with her PCP within a week to maybe have labs redrawn. Discussed s/sx infection and UTI and methods of prevention. Discussed fall prevention in the home and use of DME. Pt. states she has a walker in her home but does not want to use it even though she has balance issues. CM to send out home PT for pt. per pt. PIV DC'd, cannula intact, pressure bandage applied. No tele to remove. Pt. placed in w/c with all of her belongings and home medications to discharge home with her . Escorted downstairs.
[2022-11-19 12:15] LABS: IMMUNOGLOBULIN A, QN, SERUM 491 mg/dL (64-422); IMMUNOGLOBULIN G, QN, SERUM 935 mg/dL (586-1602); IMMUNOGLOBULIN M, QN, SERUM 120 mg/dL (26-217)
[2022-11-20 10:57] LABS: FOLATE SERUM(FOLIC) 15.9 ng/mL (>3.0)
[2022-11-20 10:57] LABS: CANCER ANTIGEN 125 45.5 U/mL (0.0-38.1); CARBOHYDRATE ANTIGEN 19-9 22 U/mL (0-35)
== END 2022-11-18 16:59 | disposition home health service (06) | DRG 640 ==
LOC: ER 15:59 → ED HOLD 11-17 00:27 → ORTHO 4S 11-17 09:40
PROVIDERS: ADMIT Internal Medicine; ATTEND Internal Medicine
DX: E87.6 Hypokalemia (principal); E43 Unspecified severe protein-calorie malnutrition; N39.0 Urinary tract infection, site not specified; Z68.1 Body mass index [BMI] 19.9 or less, adult; I25.10 Atherosclerotic heart disease of native coronary artery without angina pectoris; N18.9 Chronic kidney disease, unspecified; E03.9 Hypothyroidism, unspecified; G89.29 Other chronic pain; M54.9 Dorsalgia, unspecified; R63.4 Abnormal weight loss; Z86.73 Personal history of transient ischemic attack (TIA), and cerebral infarction without residual deficits; Z88.1 Allergy status to other antibiotic agents; Z88.5 Allergy status to narcotic agent; Z88.0 Allergy status to penicillin; Z88.2 Allergy status to sulfonamides; Z88.8 Allergy status to other drugs, medicaments and biological substances; Z79.899 Other long term (current) drug therapy
CPT/HCPCS: 36415; 74176; 80053; 81001; 82607; 82652; 82746; 82784; 82948; 83520; 83540; 83550; 83690; 83735; 83970; 84132; 84443; 84484; 85025; 86301; 86304; 86334; 87077; 87088; 87186; 97161; 97530; 97535; 99285; A6212; A6213; A6250; G0378; J1644; J3480; J7030; J7050

== ENCOUNTER 2023-02-19 13:52 | Inpatient (IN) | payer MEDICARE, MEDICAID ==
[~2023-02-19] VITALS: Ht 154.9 cm; Wt 38.0 kg
[~2023-02-19 13:52] MED LIST changes: -AMIT25TA23 PO; -ASPI-611 PO; -CALC1TAB2; +NITR100C PO; -NITR100C6 PO; +OMEP20CA16 PO; -OMEP20TA43 PO
[2023-02-19] MEDS ORDERED: HYDROmorphone inj. 0.5 MG/0.5 ML DISP.SYRIN IV ONE ×2 (14:40→15:20)
[2023-02-19] MEDS ORDERED: ondansetron/PF 4mg/2ml inj IV ONE (15:25)
[2023-02-19 15:31] LABS: EOSINOPHILS # (AUTO) 0.1 X10'3 (0-0.9); MONOCYTES # (AUTO) 0.6 X10'3 (0-0.9)
[2023-02-19 15:33] LABS: BASOPHILS # (AUTO) 0.1 X10'3 (0-0.2); BASOPHILS % (AUTO) 0.5 % (0-1); EOSINOPHILS % (AUTO) 0.9 % (0-6); HEMATOCRIT 31.5 % (35.0-45.0); HEMOGLOBIN 10.3 g/dl (12.0-16.0); LYMPHOCYTES # (AUTO) 1.4 X10'3 (1.1-4.8); LYMPHOCYTES % (AUTO) 13.4 % (21-51); MEAN CORPUSCULAR HEMOGLOBIN 30.3 PG (27.0-31.0); MEAN CORPUSCULAR HGB CONC 32.6 g/dL (33.0-36.5); MEAN CORPUSCULAR VOLUME 93.1 FL (78-98); MEAN PLATELET VOLUME 8.4 FL (7.4-10.4); MONOCYTES % (AUTO) 5.6 % (2-12); NEUTROPHILS # (AUTO) 8.2 X10'3 (1.8-7.7); NEUTROPHILS % (AUTO) 79.6 % (42-75); PLATELET COUNT 116 X10'3 (140-440); RED BLOOD COUNT 3.38 X10'6 (4.20-5.60); RED CELL DISTRIBUTION WIDTH 17.8 % (11.5-14.5); WHITE BLOOD COUNT 10.3 X10'3 (4.5-11.0)
[2023-02-19 15:38] LABS: ALANINE AMINOTRANSFERASE 18 U/L (12-78); ALBUMIN 3.1 G/DL (3.4-5.0); ALBUMIN/GLOBULIN RATIO 0.8 (1.1-1.5); ALKALINE PHOSPHATASE 73 IU/L (46-116); ANION GAP 13 (8-16); ASPARTATE AMINO TRANSFERASE 23 U/L (10-37); BILIRUBIN,TOTAL 0.5 MG/DL (0.1-1.0); BLOOD UREA NITROGEN 11 MG/DL (7-18); BUN/CREATININE RATIO 11.5 (10.0-20.0); CALCIUM 8.3 MG/DL (8.5-10.1); CHLORIDE 103 MMOL/L (99-107); CREATININE 0.96 MG/DL (0.40-0.90); GLUCOSE 128 MG/DL (70-104); POTASSIUM 3.3 MMOL/L (3.5-5.1); SODIUM 139 MMOL/L (135-145); TOTAL CARBON DIOXIDE 22.7 MMOL/L (24-32); TOTAL PROTEIN 6.8 G/DL (6.4-8.2); eCRCL 29 ML/MIN; eGFR 56 ML/MIN
[2023-02-19 16:11] LABS: BILIRUBIN,URINE NEGATIVE (Neg); CLARITY,URINE SLIGHTLY CLOUDY (Clear); COLOR,URINE YELLOW (Yellow); GLUCOSE, URINE NEGATIVE (Neg); KETONES,URINE NEGATIVE (Neg); LEUKOCYTE ESTERASE ,URINE NEGATIVE (Neg); NITRITES, URINE NEGATIVE (Neg); OCCULT BLOOD,URINE NEGATIVE (Neg); PROTEIN,URINE NEGATIVE (Neg); UROBILINOGEN,URINE 0.2 E.U/dL (0.2-1.0)
[2023-02-19 16:17] LABS: UA COLLECTION TYPE FOLEY CATH
[2023-02-19 16:18] LABS: SQUAMOUS EPITHELIAL CELL,UR FEW /LPF (FEW)
[2023-02-19 16:19] LABS: BACTERIA,URINE FEW /HPF (Neg); RBC,URINE 0-2 /HPF (0-2); WBC,URINE 0-4 /HPF (0-4)
[2023-02-19] MEDS ORDERED: metoclopramide 5 mg/ml inj IV ONE (16:35)
[2023-02-19 17:36] LABS: APTT 26 SECONDS (22-32); PROTHROMBIN TIME 11.2 SECONDS (9.0-12.0)
[2023-02-19] MEDS ORDERED: potassium Cl 20 mEq SR tablet PO PRN ×2 (17:40)
[2023-02-19] MEDS ORDERED: potassium Cl 40MEQ/1/2NS 520ml 520 ML IV PRN (17:40)
[2023-02-19] MEDS ORDERED: mag hydrox/Alum hydrox/simeth 30ml oral suspension PO PRN (17:40)
[2023-02-19] MEDS ORDERED: magnesium hydroxide 30ml (MOM) UD suspension PO PRN (17:40)
[2023-02-19] MEDS ORDERED: acetaminophen 325mg tablet PO PRN (17:40)
[2023-02-19] MEDS ORDERED: magnesium Cl slow-release 64mg tablet PO PRN (17:40)
[2023-02-19] MEDS ORDERED: morphine 2 MG/ML inj. syringe IV PRN ×2 (17:40)
[2023-02-19] MEDS ORDERED: magnesium 2GM in 50ml NS 50 ML IV PRN (17:40)
[2023-02-19] MEDS ORDERED: magnesium 4gm in 100ml NS 100 ML IV PRN (17:40)
[2023-02-19] MEDS ORDERED: HYDROmorphone/PF 0.2 MG/ML SYRINGE IV PRN (18:15)
[2023-02-19] MEDS: normal saline 1000ml 1,000 ML IV SCH (18:22)
[2023-02-19] MEDS: LIDOcaine 5% patch TP SCH (18:26)
[2023-02-19] MEDS: ondansetron/PF 4mg/2ml inj IV PRN (18:46)
[2023-02-19] MEDS: HYDROmorphone inj. 0.5 MG/0.5 ML DISP.SYRIN IV PRN ×2 (18:46→21:22)
[2023-02-19] MEDS: docusate sod 100mg capsule PO SCH (20:00)
[2023-02-19] MEDS: K and/or MAG REPLACEMENT MC SCH (20:11)
[2023-02-19] MEDS: atorvastatin 20mg tablet PO SCH (21:13)
[2023-02-19] MEDS: Melatonin 3mg tablet PO SCH (21:13)
[2023-02-19] MEDS ORDERED: ringers solution, lacted 1,000 ML IV ONE (22:10)
[2023-02-20] MEDS: HYDROmorphone inj. 0.5 MG/0.5 ML DISP.SYRIN IV PRN ×4 (02:16→15:48)
[2023-02-20] MEDS: ondansetron/PF 4mg/2ml inj IV PRN (02:25)
[2023-02-20 03:52] LABS: BASOPHILS # (AUTO) 0.1 X10'3 (0-0.2); BASOPHILS % (AUTO) 0.8 % (0-1); EOSINOPHILS % (AUTO) 0.1 % (0-6); HEMATOCRIT 27.4 % (35.0-45.0); HEMOGLOBIN 9.1 g/dl (12.0-16.0); LYMPHOCYTES # (AUTO) 1.2 X10'3 (1.1-4.8); LYMPHOCYTES % (AUTO) 11.7 % (21-51); MEAN CORPUSCULAR HEMOGLOBIN 30.7 PG (27.0-31.0); MEAN CORPUSCULAR HGB CONC 33.1 g/dL (33.0-36.5); MEAN CORPUSCULAR VOLUME 92.8 FL (78-98); MEAN PLATELET VOLUME 8.4 FL (7.4-10.4); MONOCYTES # (AUTO) 0.8 X10'3 (0-0.9); MONOCYTES % (AUTO) 8.4 % (2-12); NEUTROPHILS # (AUTO) 7.7 X10'3 (1.8-7.7); PLATELET COUNT 102 X10'3 (140-440); RED BLOOD COUNT 2.95 X10'6 (4.20-5.60); RED CELL DISTRIBUTION WIDTH 17.4 % (11.5-14.5); WHITE BLOOD COUNT 9.8 X10'3 (4.5-11.0)
[2023-02-20 04:09] LABS: ALANINE AMINOTRANSFERASE 14 U/L (12-78); ALBUMIN 2.7 G/DL (3.4-5.0); ALBUMIN/GLOBULIN RATIO 0.8 (1.1-1.5); ALKALINE PHOSPHATASE 56 IU/L (46-116); ANION GAP 4 (8-16); ASPARTATE AMINO TRANSFERASE 28 U/L (10-37); BILIRUBIN,TOTAL 0.5 MG/DL (0.1-1.0); BLOOD UREA NITROGEN 12 MG/DL (7-18); CALCIUM 7.9 MG/DL (8.5-10.1); CHLORIDE 107 MMOL/L (99-107); CREATININE 0.86 MG/DL (0.40-0.90); GLUCOSE 114 MG/DL (70-104); MAGNESIUM 1.8 MG/DL (1.5-2.4); SODIUM 137 MMOL/L (135-145); TOTAL CARBON DIOXIDE 25.8 MMOL/L (24-32); TOTAL PROTEIN 6.2 G/DL (6.4-8.2); eCRCL 32 ML/MIN; eGFR 64 ML/MIN
[2023-02-20 04:11] LABS: POTASSIUM 4.9 MMOL/L (3.5-5.1)
[2023-02-20 07:15] VITALS: BP 102/52; PULSE 82; RESP 14; TEMP 97.8; O2SAT 100
[2023-02-20] MEDS ORDERED: cyanocobalamin 1,000 mcg/ml inj IM SCH (07:35)
[2023-02-20] MEDS: K and/or MAG REPLACEMENT MC SCH ×2 (08:00→19:59)
[2023-02-20] MEDS: docusate sod 100mg capsule PO SCH ×2 (08:00→20:16)
[2023-02-20] MEDS: levoTHYROXINE 75mcg tablet PO SCH (08:30)
[2023-02-20] MEDS: LIDOcaine 5% patch TP SCH (08:31)
[2023-02-20 09:27] LABS: % IRON SATURATION 10 % (11-46); IRON 17 UG/DL (49-151); TOTAL IRON BINDING CAPACITY 168 UG/DL (259-388)
[2023-02-20 10:30] VITALS: BP 95/54; PULSE 81; RESP 15; TEMP 98.3; O2SAT 95
[2023-02-20] MEDS: normal saline 1000ml 1,000 ML IV SCH (15:50)
[2023-02-20] MEDS: HYDROcodone/acetaminophen 10/325mg tab PO PRN (19:40)
[2023-02-20] MEDS: heparin, porcine 5000 units/ml vial SQ SCH (20:16)
[2023-02-20] MEDS: atorvastatin 20mg tablet PO SCH (20:17)
[2023-02-20] MEDS: Melatonin 3mg tablet PO SCH (20:18)
[2023-02-21] VITALS (26 sets, daily range): BP systolic 80–107; BP diastolic 42–63; PULSE 17–102; RESP 10–18; TEMP 97.2–98.5; O2SAT 92–100
[2023-02-21] MEDS: HYDROcodone/acetaminophen 10/325mg tab PO PRN ×3 (01:56→23:22)
[2023-02-21] MEDS: HYDROmorphone inj. 0.5 MG/0.5 ML DISP.SYRIN IV PRN ×3 (06:17→20:56)
[2023-02-21] MEDS ORDERED: ROPIVAcaine 0.5% (5mg/ml) 30ml vial ONE (06:51)
[2023-02-21] MEDS ORDERED: vancomycin 1,000mg inj ONE (06:51)
[2023-02-21] MEDS ORDERED: vancomycin inj 500 MG in normal saline 100ml IV soln 100 ML IV ONE (06:55)
[2023-02-21] MEDS ORDERED: vancomycin/NS 1 GM ADD-VANTAGE 250 ML X 1 DOSE IV ONE (07:00)
[2023-02-21] MEDS: levoTHYROXINE 75mcg tablet PO SCH (07:00)
[2023-02-21] MEDS ORDERED: ondansetron/PF 4mg/2ml inj IV PRN (07:15)
[2023-02-21] MEDS ORDERED: fentaNYL/PF 50MCG/1 ML 2ML syringe IV PRN (07:15)
[2023-02-21] MEDS ORDERED: ringers solution, lacted 1,000 ML IV SCH (07:15)
[2023-02-21] MEDS ORDERED: fentaNYL/PF 50MCG/1 ML 2ML syringe ONE (07:34)
[2023-02-21] MEDS ORDERED: rocuronium 10mg/ml inj IV ONE (07:39)
[2023-02-21] MEDS ORDERED: LIDOcaine 1%/PF 5ML 10 MG/ML VIAL ONE (07:39)
[2023-02-21] MEDS ORDERED: etomidate 2mg/ml inj. ONE (07:39)
[2023-02-21] MEDS ORDERED: sevoflurane 250ml liquid IH ONE (07:45)
[2023-02-21] MEDS: docusate sod 100mg capsule PO SCH ×2 (08:00→21:13)
[2023-02-21] MEDS: heparin, porcine 5000 units/ml vial SQ SCH ×2 (08:00→20:00)
[2023-02-21] MEDS: K and/or MAG REPLACEMENT MC SCH ×2 (08:00→20:00)
[2023-02-21] MEDS: LIDOcaine 5% patch TP SCH (08:00)
[2023-02-21] MEDS ORDERED: ondansetron/PF 4mg/2ml inj ONE (08:21)
[2023-02-21] MEDS ORDERED: dexamethasone sod phosphate 4mg/ml inj. ONE (08:21)
[2023-02-21] MEDS ORDERED: ePHEDrine 50MG/ML INJ. ONE (08:21)
[2023-02-21] MEDS ORDERED: ROPIVAcaine 0.5% (5mg/ml) 30ml vial IJ ONE (08:25)
[2023-02-21] MEDS ORDERED: vancomycin 1,000mg inj IVT ONE (08:26)
[2023-02-21] MEDS ORDERED: sugammadex 200mg/2ml injection IV ONE (08:28)
[2023-02-21 09:27] LABS: ISTAT CREATININE 0.7 mg/dL (0.6-1.1); ISTAT HGB 10.2 g/dl (12.0-16.0); ISTAT IONIZED CALCIUM 1.24 mmol/L (1.03-1.32); ISTAT K 3.9 mmol/L (3.5-5.1); POC BUN/CREATININE RATIO 14.3 (6.6-38.0)
[2023-02-21] MEDS: morphine 2 MG/ML inj. syringe IV PRN ×2 (10:14→10:36)
[2023-02-21] MEDS: normal saline 1000ml 1,000 ML IV SCH (10:20)
[2023-02-21] MEDS: ondansetron/PF 4mg/2ml inj IV PRN (11:04)
[2023-02-21 11:43] LABS: BASOPHILS % (AUTO) 0.3 % (0-1); EOSINOPHILS % (AUTO) 0.1 % (0-6); HEMATOCRIT 30.8 % (35.0-45.0); LYMPHOCYTES # (AUTO) 0.4 X10'3 (1.1-4.8); LYMPHOCYTES % (AUTO) 4.3 % (21-51); MEAN CORPUSCULAR HEMOGLOBIN 30.5 PG (27.0-31.0); MEAN CORPUSCULAR HGB CONC 32.3 g/dL (33.0-36.5); MEAN CORPUSCULAR VOLUME 94.5 FL (78-98); MEAN PLATELET VOLUME 8.3 FL (7.4-10.4); MONOCYTES # (AUTO) 0.4 X10'3 (0-0.9); MONOCYTES % (AUTO) 3.9 % (2-12); NEUTROPHILS # (AUTO) 9.3 X10'3 (1.8-7.7); NEUTROPHILS % (AUTO) 91.4 % (42-75); PLATELET COUNT 94 X10'3 (140-440); RED BLOOD COUNT 3.26 X10'6 (4.20-5.60); RED CELL DISTRIBUTION WIDTH 17.8 % (11.5-14.5); WHITE BLOOD COUNT 10.2 X10'3 (4.5-11.0)
[2023-02-21 11:57] LABS: ALANINE AMINOTRANSFERASE 14 U/L (12-78); ALBUMIN 2.4 G/DL (3.4-5.0); ALBUMIN/GLOBULIN RATIO 0.6 (1.1-1.5); ALKALINE PHOSPHATASE 55 IU/L (46-116); ANION GAP 8 (8-16); ASPARTATE AMINO TRANSFERASE 24 U/L (10-37); BILIRUBIN,TOTAL 0.4 MG/DL (0.1-1.0); BLOOD UREA NITROGEN 11 MG/DL (7-18); BUN/CREATININE RATIO 14.9 (10.0-20.0); CALCIUM 8.3 MG/DL (8.5-10.1); CHLORIDE 108 MMOL/L (99-107); CREATININE 0.74 MG/DL (0.40-0.90); GLUCOSE 125 MG/DL (70-104); POTASSIUM 3.9 MMOL/L (3.5-5.1); SODIUM 136 MMOL/L (135-145); TOTAL CARBON DIOXIDE 20.5 MMOL/L (24-32); TOTAL PROTEIN 6.1 G/DL (6.4-8.2); eCRCL 37 ML/MIN; eGFR 76 ML/MIN
[2023-02-21 13:03] LABS: THYROID STIMULATING HORMONE 3.25 ulU/ml (0.34-4.50)
[2023-02-21] MEDS: ceFAZolin/D5W- 1GM premix 50 ML IV SCH (16:27)
[2023-02-21] MEDS ORDERED: vancomycin inj. 750 MG in normal saline 250ml IV soln 250 ML IV ONE (20:00)
[2023-02-21] MEDS: Melatonin 3mg tablet PO SCH (21:13)
[2023-02-21] MEDS: atorvastatin 20mg tablet PO SCH (21:13)
[2023-02-22] VITALS (7 sets, daily range): BP systolic 94–115; BP diastolic 56–62; PULSE 70–94; RESP 12–16; TEMP 98–99.3; O2SAT 94–100
[2023-02-22] MEDS: ceFAZolin/D5W- 1GM premix 50 ML IV SCH (00:57)
[2023-02-22] MEDS: HYDROmorphone inj. 0.5 MG/0.5 ML DISP.SYRIN IV PRN (03:04)
[2023-02-22] MEDS: normal saline 1000ml 1,000 ML IV SCH (04:51)
[2023-02-22 05:00] LABS: BASOPHILS % (AUTO) 0.4 % (0-1); EOSINOPHILS % (AUTO) 0.3 % (0-6); HEMATOCRIT 29.4 % (35.0-45.0); HEMOGLOBIN 9.6 g/dl (12.0-16.0); LYMPHOCYTES # (AUTO) 1.3 X10'3 (1.1-4.8); LYMPHOCYTES % (AUTO) 11.4 % (21-51); MEAN CORPUSCULAR HEMOGLOBIN 30.6 PG (27.0-31.0); MEAN CORPUSCULAR HGB CONC 32.7 g/dL (33.0-36.5); MEAN CORPUSCULAR VOLUME 93.6 FL (78-98); MEAN PLATELET VOLUME 8.3 FL (7.4-10.4); MONOCYTES % (AUTO) 8.3 % (2-12); NEUTROPHILS # (AUTO) 9.5 X10'3 (1.8-7.7); NEUTROPHILS % (AUTO) 79.6 % (42-75); PLATELET COUNT 105 X10'3 (140-440); RED BLOOD COUNT 3.14 X10'6 (4.20-5.60); RED CELL DISTRIBUTION WIDTH 16.9 % (11.5-14.5); WHITE BLOOD COUNT 11.9 X10'3 (4.5-11.0)
[2023-02-22 05:17] LABS: ALANINE AMINOTRANSFERASE 15 U/L (12-78); ALBUMIN 2.4 G/DL (3.4-5.0); ALBUMIN/GLOBULIN RATIO 0.6 (1.1-1.5); ALKALINE PHOSPHATASE 53 IU/L (46-116); ANION GAP 9 (8-16); ASPARTATE AMINO TRANSFERASE 26 U/L (10-37); BILIRUBIN,TOTAL 0.4 MG/DL (0.1-1.0); BLOOD UREA NITROGEN 13 MG/DL (7-18); CHLORIDE 107 MMOL/L (99-107); CREATININE 0.93 MG/DL (0.40-0.90); GLUCOSE 98 MG/DL (70-104); MAGNESIUM 1.9 MG/DL (1.5-2.4); POTASSIUM 4.3 MMOL/L (3.5-5.1); SODIUM 137 MMOL/L (135-145); TOTAL CARBON DIOXIDE 21.1 MMOL/L (24-32); TOTAL PROTEIN 6.3 G/DL (6.4-8.2); eCRCL 29 ML/MIN; eGFR 58 ML/MIN
[2023-02-22] MEDS: HYDROcodone/acetaminophen 10/325mg tab PO PRN ×4 (06:25→20:19)
[2023-02-22] MEDS: levoTHYROXINE 75mcg tablet PO SCH (06:52)
[2023-02-22] MEDS: heparin, porcine 5000 units/ml vial SQ SCH ×2 (07:37→20:18)
[2023-02-22] MEDS: docusate sod 100mg capsule PO SCH ×2 (07:37→20:19)
[2023-02-22] MEDS: LIDOcaine 5% patch TP SCH (07:43)
[2023-02-22] MEDS: LACTOSE-REDUCED FOOD 237ML LIQUID PO SCH (08:00)
[2023-02-22] MEDS: K and/or MAG REPLACEMENT MC SCH ×2 (08:00→20:00)
[2023-02-22] MEDS: atorvastatin 20mg tablet PO SCH (20:19)
[2023-02-22] MEDS: Melatonin 3mg tablet PO SCH (20:20)
[2023-02-23] MEDS: normal saline 1000ml 1,000 ML IV SCH ×2 (00:47→22:52)
[2023-02-23] MEDS: HYDROcodone/acetaminophen 10/325mg tab PO PRN ×4 (03:12→19:22)
[2023-02-23 05:42] LABS: BASOPHILS % (AUTO) 0.2 % (0-1); EOSINOPHILS # (AUTO) 0.2 X10'3 (0-0.9); HEMATOCRIT 25.1 % (35.0-45.0); HEMOGLOBIN 8.3 g/dl (12.0-16.0); LYMPHOCYTES # (AUTO) 0.9 X10'3 (1.1-4.8); LYMPHOCYTES % (AUTO) 9.1 % (21-51); MEAN CORPUSCULAR HEMOGLOBIN 30.6 PG (27.0-31.0); MEAN CORPUSCULAR HGB CONC 33.2 g/dL (33.0-36.5); MEAN CORPUSCULAR VOLUME 92.1 FL (78-98); MEAN PLATELET VOLUME 8.9 FL (7.4-10.4); MONOCYTES % (AUTO) 10.4 % (2-12); NEUTROPHILS # (AUTO) 7.9 X10'3 (1.8-7.7); NEUTROPHILS % (AUTO) 78.3 % (42-75); PLATELET COUNT 95 X10'3 (140-440); RED BLOOD COUNT 2.72 X10'6 (4.20-5.60); WHITE BLOOD COUNT 10.1 X10'3 (4.5-11.0)
[2023-02-23 05:52] LABS: ALANINE AMINOTRANSFERASE 8 U/L (12-78); ALBUMIN 1.9 G/DL (3.4-5.0); ALBUMIN/GLOBULIN RATIO 0.5 (1.1-1.5); ALKALINE PHOSPHATASE 59 IU/L (46-116); ANION GAP 7 (8-16); ASPARTATE AMINO TRANSFERASE 22 U/L (10-37); BILIRUBIN,TOTAL 0.4 MG/DL (0.1-1.0); BLOOD UREA NITROGEN 14 MG/DL (7-18); BUN/CREATININE RATIO 17.9 (10.0-20.0); CALCIUM 8.4 MG/DL (8.5-10.1); CHLORIDE 108 MMOL/L (99-107); CREATININE 0.78 MG/DL (0.40-0.90); GLUCOSE 110 MG/DL (70-104); MAGNESIUM 1.9 MG/DL (1.5-2.4); POTASSIUM 3.8 MMOL/L (3.5-5.1); SODIUM 137 MMOL/L (135-145); TOTAL CARBON DIOXIDE 21.9 MMOL/L (24-32); TOTAL PROTEIN 5.5 G/DL (6.4-8.2); eCRCL 35 ML/MIN; eGFR 71 ML/MIN
[2023-02-23 06:00] VITALS: BP 111/60; PULSE 91; RESP 16; TEMP 97; O2SAT 95
[2023-02-23] MEDS: levoTHYROXINE 75mcg tablet PO SCH (06:46)
[2023-02-23] MEDS: heparin, porcine 5000 units/ml vial SQ SCH ×2 (07:59→21:13)
[2023-02-23] MEDS: LACTOSE-REDUCED FOOD 237ML LIQUID PO SCH ×3 (08:00→18:00)
[2023-02-23] MEDS: docusate sod 100mg capsule PO SCH ×2 (08:00→19:29)
[2023-02-23] MEDS: K and/or MAG REPLACEMENT MC SCH ×2 (08:00→20:00)
[2023-02-23] MEDS: LIDOcaine 5% patch TP SCH (08:01)
[2023-02-23 08:15] VITALS: RESP 15; O2SAT 94
[2023-02-23 10:00] VITALS: BP 97/62; PULSE 85; RESP 11; TEMP 98.2; O2SAT 96
[2023-02-23] MEDS: HYDROcodone/acetaminophen 5mg/325mg tablet PO PRN (15:03)
[2023-02-23 18:00] VITALS: BP 108/60; PULSE 94; RESP 12; TEMP 98.7; O2SAT 100
[2023-02-23] MEDS: Melatonin 3mg tablet PO SCH (19:20)
[2023-02-23] MEDS: atorvastatin 20mg tablet PO SCH (19:22)
[2023-02-23 20:00] VITALS: RESP 16; O2SAT 94
[2023-02-23 22:00] VITALS: BP 104/59; PULSE 95; RESP 14; TEMP 97.7; O2SAT 97
[2023-02-24] VITALS (8 sets, daily range): BP systolic 88–108; BP diastolic 56–64; PULSE 90–94; RESP 16–20; TEMP 97.9–98.4; O2SAT 95–97
[2023-02-24] MEDS: HYDROcodone/acetaminophen 10/325mg tab PO PRN ×3 (04:46→15:39)
[2023-02-24 06:16] LABS: ALANINE AMINOTRANSFERASE 8 U/L (12-78); ALBUMIN 1.8 G/DL (3.4-5.0); ALBUMIN/GLOBULIN RATIO 0.5 (1.1-1.5); ALKALINE PHOSPHATASE 71 IU/L (46-116); ANION GAP 7 (8-16); ASPARTATE AMINO TRANSFERASE 23 U/L (10-37); BILIRUBIN,TOTAL 0.4 MG/DL (0.1-1.0); BLOOD UREA NITROGEN 18 MG/DL (7-18); BUN/CREATININE RATIO 27.7 (10.0-20.0); CALCIUM 8.3 MG/DL (8.5-10.1); CHLORIDE 106 MMOL/L (99-107); CREATININE 0.65 MG/DL (0.40-0.90); GLUCOSE 110 MG/DL (70-104); POTASSIUM 3.8 MMOL/L (3.5-5.1); SODIUM 136 MMOL/L (135-145); TOTAL CARBON DIOXIDE 22.6 MMOL/L (24-32); TOTAL PROTEIN 5.6 G/DL (6.4-8.2); eCRCL 42 ML/MIN; eGFR 88 ML/MIN
[2023-02-24 06:26] LABS: BASOPHILS % (AUTO) 0.4 % (0-1); EOSINOPHILS # (AUTO) 0.3 X10'3 (0-0.9); EOSINOPHILS % (AUTO) 2.7 % (0-6); HEMATOCRIT 25.8 % (35.0-45.0); HEMOGLOBIN 8.7 g/dl (12.0-16.0); LYMPHOCYTES # (AUTO) 1.5 X10'3 (1.1-4.8); LYMPHOCYTES % (AUTO) 14.1 % (21-51); MEAN CORPUSCULAR HEMOGLOBIN 30.9 PG (27.0-31.0); MEAN CORPUSCULAR HGB CONC 33.5 g/dL (33.0-36.5); MEAN CORPUSCULAR VOLUME 92.2 FL (78-98); MEAN PLATELET VOLUME 8.8 FL (7.4-10.4); MONOCYTES # (AUTO) 1.1 X10'3 (0-0.9); MONOCYTES % (AUTO) 10.1 % (2-12); NEUTROPHILS # (AUTO) 7.7 X10'3 (1.8-7.7); NEUTROPHILS % (AUTO) 72.7 % (42-75); PLATELET COUNT 113 X10'3 (140-440); RED CELL DISTRIBUTION WIDTH 16.6 % (11.5-14.5); WHITE BLOOD COUNT 10.6 X10'3 (4.5-11.0)
[2023-02-24] MEDS: docusate sod 100mg capsule PO SCH ×2 (07:53→20:33)
[2023-02-24] MEDS: heparin, porcine 5000 units/ml vial SQ SCH ×2 (07:57→20:45)
[2023-02-24] MEDS: LIDOcaine 5% patch TP SCH (07:57)
[2023-02-24] MEDS: levoTHYROXINE 75mcg tablet PO SCH (07:57)
[2023-02-24] MEDS: LACTOSE-REDUCED FOOD 237ML LIQUID PO SCH (08:00)
[2023-02-24] MEDS: K and/or MAG REPLACEMENT MC SCH ×2 (08:00→20:00)
[2023-02-24] MEDS: atorvastatin 20mg tablet PO SCH (20:33)
[2023-02-24] MEDS: Melatonin 3mg tablet PO SCH (20:33)
[2023-02-24] MEDS: HYDROcodone/acetaminophen 5mg/325mg tablet PO PRN (20:33)
[2023-02-25] MEDS: normal saline 1000ml 1,000 ML IV SCH ×2 (00:18→19:54)
[2023-02-25] MEDS: HYDROcodone/acetaminophen 10/325mg tab PO PRN ×3 (02:48→20:05)
[2023-02-25 06:00] VITALS: BP 95/53; PULSE 83; RESP 18; TEMP 98.3; O2SAT 97
[2023-02-25 08:00] VITALS: RESP 18; O2SAT 97
[2023-02-25] MEDS: docusate sod 100mg capsule PO SCH ×2 (08:00→20:00)
[2023-02-25] MEDS: K and/or MAG REPLACEMENT MC SCH ×2 (08:00→20:00)
[2023-02-25] MEDS: levoTHYROXINE 75mcg tablet PO SCH (08:36)
[2023-02-25] MEDS: LIDOcaine 5% patch TP SCH (08:36)
[2023-02-25] MEDS: heparin, porcine 5000 units/ml vial SQ SCH ×2 (08:37→20:00)
[2023-02-25 10:00] VITALS: BP 95/50; PULSE 82; RESP 16; TEMP 98; O2SAT 99
[2023-02-25] MEDS ORDERED: ASPI-1 PO (12:41)
[2023-02-25] MEDS ORDERED: HYDROmorphone inj. 0.5 MG/0.5 ML DISP.SYRIN IV ONE (15:00)
[2023-02-25] MEDS ORDERED: HYDROmorphone inj. 0.5 MG/0.5 ML DISP.SYRIN IV PRN (17:00)
[2023-02-25] MEDS ORDERED: ALPRAZolam 0.25mg tablet PO PRN (17:50)
[2023-02-25] MEDS: LACTOSE-REDUCED FOOD 237ML LIQUID PO SCH (18:00)
[2023-02-25 19:00] VITALS: BP 98/57; PULSE 83; RESP 20; TEMP 96.9; O2SAT 100
[2023-02-25 22:00] VITALS: BP 111/57; PULSE 88; RESP 16; TEMP 97.8; O2SAT 100
[2023-02-25] MEDS: atorvastatin 20mg tablet PO SCH (22:13)
[2023-02-25] MEDS: Melatonin 3mg tablet PO SCH (22:13)
[2023-02-26] MEDS: HYDROcodone/acetaminophen 10/325mg tab PO PRN ×2 (05:52→09:42)
[2023-02-26 06:00] VITALS: BP 106/45; PULSE 68; RESP 16; TEMP 98; O2SAT 97
[2023-02-26 07:00] VITALS: RESP 16; O2SAT 97
[2023-02-26] MEDS: LIDOcaine 5% patch TP SCH (07:44)
[2023-02-26] MEDS: heparin, porcine 5000 units/ml vial SQ SCH (07:47)
[2023-02-26 11:30] VITALS: BP 97/58; PULSE 78; RESP 18; TEMP 97.7; O2SAT 100
== END 2023-02-26 13:30 | DRG 521 ==
LOC: ER 13:53 → ED HOLD 17:46 → UNDOADMIN 21:22 → ED HOLD 21:22 → EDBEDREQ 02-20 03:02 → ORTHO 4S 02-20 07:15
PROVIDERS: ADMIT Family Medicine; ATTEND Family Medicine
PROC: 0SRR0JA Replacement of Right Hip Joint, Femoral Surface with Synthetic Substitute, Uncemented, Open Approach (ICD-10-PCS; principal; 2023-02-21 07:45)
DX: S72.011A Unspecified intracapsular fracture of right femur, initial encounter for closed fracture (principal); E43 Unspecified severe protein-calorie malnutrition; S22.42XA Multiple fractures of ribs, left side, initial encounter for closed fracture; Z68.1 Body mass index [BMI] 19.9 or less, adult; N18.30 Chronic kidney disease, stage 3 unspecified; Z20.822 Contact with and (suspected) exposure to COVID-19; E03.9 Hypothyroidism, unspecified; D69.6 Thrombocytopenia, unspecified; D64.9 Anemia, unspecified; D72.829 Elevated white blood cell count, unspecified; I25.10 Atherosclerotic heart disease of native coronary artery without angina pectoris; W18.30XA Fall on same level, unspecified, initial encounter; Z79.82 Long term (current) use of aspirin; Z80.1 Family history of malignant neoplasm of trachea, bronchus and lung; Z86.73 Personal history of transient ischemic attack (TIA), and cerebral infarction without residual deficits; Y93.89 Activity, other specified; Y92.89 Other specified places as the place of occurrence of the external cause; Y99.8 Other external cause status; Z88.1 Allergy status to other antibiotic agents; Z88.0 Allergy status to penicillin; Z88.2 Allergy status to sulfonamides; Z88.8 Allergy status to other drugs, medicaments and biological substances; Z79.899 Other long term (current) drug therapy
CPT/HCPCS: 36415; 70450; 71045; 71100; 71250; 72125; 72192; 73501; 73502; 80047; 80053; 81001; 82607; 82948; 83540; 83550; 83735; 84132; 84443; 85025; 85610; 85730; 86885; 86900; 86901; 87811; 92508; 92616; 93005; 96374; 96375; 96376; 97116; 97161; 97530; 99285; A4314; A4615; A5200; A6212; A6213; A6454; A7000; C1776; G0378; J0690; J1100; J1170; J1644; J2270; J2405; J2765; J2795; J3010; J3370; J3420; J3480; J3490; J7030; J7050; J7120